=== PATIENT | female | born 1990 | race African-American/Black ===

== ENCOUNTER 2017-07-01 01:08 | Emergency (ER) | payer OTHER ==
[~2017-07-01] VITALS: Ht 165.1 cm; Wt 63.5 kg
--- NOTE | 2017-07-01 01:15 | NUR ---
PT AMBULATED TO ER WITH C/O BILATERAL LOWER ABDOMINAL PAIN, NAUSEA, & VOMITING THAT STARTED 5 HRS AGO. PT DENIES ANY MEDICAL HISTORY. PT APPEARS TO BE IN A LOT OF PAIN. PT GRIMACING, MOANING, AND DRY HEAVING. LAST BM WAS TODAY PER PT. AAOX4. ABLE TO SPEAKN IN COMPLETE SENTENCES. ABLE TO MAKE NEEDS KNOWN. RESPONSIVE TO VERBAL + TACTILE STIMULI. RESPIRATIONS EVEN + UNLABORED. NO SOB/CONGESTION NOTED. NO CHEST PAIN NOTED. PT IN BED IN LOWEST POSITION. WHEELS LOCKED. CALL LIGHT WITHIN REACH. VSS.
--- NOTE | 2017-07-01 01:17 | NUR ---
[facility] MIRELES AT BEDSIDE FOR MSE.
[2017-07-01] MEDS ORDERED: ONDANSETRON 4 MG/2 ML VIAL IV ONE ×3 (01:30→04:30)
[2017-07-01] MEDS ORDERED: PANTOPRAZOLE SODIUM 40 MG VIAL IV ONE (01:30)
[2017-07-01] MEDS ORDERED: IV NORMAL SALINE 1000 ML BAG IV ONE ×2 (01:30→02:45)
[2017-07-01] MEDS ORDERED: KETOROLAC TROMETHAMINE 15 MG INJ IV ONE (01:30)
--- NOTE | 2017-07-01 01:31 | NUR ---
[facility] AT BEDSIDE FOR BLOOD DRAW.
[2017-07-01] MEDS ORDERED: ONDANSETRON 4 MG/2 ML VIAL ONE ×4 (01:36→04:36)
[2017-07-01] MEDS ORDERED: KETOROLAC TROMETHAMINE 30 MG INJ ONE (01:36)
[2017-07-01] MEDS ORDERED: PANTOPRAZOLE SODIUM 40 MG VIAL ONE (01:36)
--- NOTE | 2017-07-01 02:00 | NUR ---
PT APPEARS IN DISCOMFORT/PAIN. DRY HEAVING LOUDLY. VSS.
[2017-07-01 02:07] LABS: BASOPHILS # (AUTO) 0.1 K/uL (0.0-8.0); BASOPHILS % (AUTO) 0.8 % (0.0-2.0); EOSINOPHILS % (AUTO) 0.2 % (0.0-7.0); HEMOGLOBIN 9.6 g/dL (10.9-14.3); LYMPHOCYTES # (AUTO) 2.6 K/uL (20.0-40.0); MEAN CORPUSCULAR HEMOGLOBIN 20.2 uug (24.7-32.8); MEAN CORPUSCULAR HGB CONC 31 g/dL (32.3-35.6); MEAN CORPUSCULAR VOLUME 64.9 fL (75.5-95.3); MONOCYTES # (AUTO) 0.4 K/uL (2.0-10.0); MONOCYTES % (AUTO) 4.6 % (0.0-11.0); NEUTROPHILS # (AUTO) 5.3 K/uL (1.8-8.9); NEUTROPHILS % (AUTO) 63.4 % (38.5-71.5); PLATELET COUNT (AUTO) 468 K/uL (179-408); RED BLOOD CELL COUNT(AUTO) 4.78 MIL/uL (3.63-4.92); WHITE BLOOD COUNT (AUTO) 8.4 K/uL (3.8-11.8)
[2017-07-01 02:10] LABS: POTASSIUM 3.5 mmol/L (3.5-5.1)
[2017-07-01 02:15] LABS: BILIRUBIN,DIRECT 0.1 mg/dL (0.0-0.2); BILIRUBIN,TOTAL 0.5 mg/dL (0.2-1.0); TOTAL PROTEIN, SERUM 8.8 g/dL (6.4-8.2)
[2017-07-01] MEDS ORDERED: MORPHINE SULFATE 2 MG/1 ML DISP.SYRIN IV ONE ×2 (02:15→04:30)
[2017-07-01] MEDS ORDERED: METOCLOPRAMIDE HCL 10 MG/2 ML VIAL IV ONE ×3 (02:15→03:30)
[2017-07-01] MEDS ORDERED: diphenhydrAMINE 50 MG/1 ML VIAL IV ONE (02:15)
[2017-07-01 02:16] LABS: *BILIRUBIN,URIN NEGATIVE (NEGATIVE); *BLOOD, URINE NEGATIVE (NEGATIVE); *CLARITY,URINE CLEAR (CLEAR); *COLOR,URINE YELLOW (YELLOW); *KETONES,URINE 1+ (NEGATIVE); *PROTEIN,URINE 2+ (NEGATIVE); *URINE HCG, QUAL NEGATIVE (NEGATIVE); *UROBILINOGEN,URINE 0.2 E.U./dl (NORMAL); LEUKOCYTE ESTERASE ,URINE NEGATIVE (NEGATIVE); NITRITE, URINE NEGATIVE (NEGATIVE); PH,URINE 8.5 (5.0-8.0); UGLUCOSE NEGATIVE (NEGATIVE)
[2017-07-01] MEDS ORDERED: METOCLOPRAMIDE HCL 10 MG/2 ML VIAL ONE ×3 (02:16→03:19)
[2017-07-01] MEDS ORDERED: MORPHINE SULFATE 4 MG/1 ML DISP.SYRIN ONE ×4 (02:16→04:36)
[2017-07-01] MEDS ORDERED: diphenhydrAMINE 50 MG/1 ML VIAL ONE (02:17)
[2017-07-01 02:20] LABS: RBC,URINE 0-3 /HPF (0-3)
[2017-07-01 02:21] LABS: BACTERIA,URINE NONE SEEN /HPF (NONE SEEN); MUCUS,URINE MANY /LPF (0-FEW); SQUAMOUS EPITHELIAL CELL,UR FEW /HPF (NONE SEEN)
[2017-07-01] MEDS ORDERED: MORPHINE SULFATE 4 MG/1 ML DISP.SYRIN IV ONE ×2 (02:45→03:30)
--- NOTE | 2017-07-01 02:48 | NUR ---
PT DRY HEAVING, MOANING IN PAIN. VSS. SA02 100% RA.
--- NOTE | 2017-07-01 03:00 | NUR ---
PT RESTING IN BED WITH EYES CLOSED. VSS.
--- NOTE | 2017-07-01 03:20 | NUR ---
PT APPEARS RESTLESS, MOANING IN PAIN, DRY HEAVING, VOMITED APPROXIMATELY 30 ML. VSS.
[2017-07-01 03:32] LABS: EOSINOPHILS % (MANUAL) 1 % (0-8); LYMPHOCYTES % (MANUAL) 18 % (20-40); MONOCYTES % (MANUAL) 8 % (2-10); NEUTROPHILS % (MANUAL) 73 % (42-75)
--- NOTE | 2017-07-01 03:41 | NUR ---
PT RESTING IN BED. VSS. PT STATES SHE FEELS "MUCH BETTER."
--- NOTE | 2017-07-01 04:48 | NUR ---
PT EN ROUTE TO CT SCAN ACCOMPANIED BY TRANSPORTER. VSS.
--- NOTE | 2017-07-01 04:59 | NUR ---
PT BACK FROM CT SCAN. VSS.
--- NOTE | 2017-07-01 05:06 | NUR ---
pt ambulates to restroom independently
--- NOTE | 2017-07-01 05:40 | NUR ---
PT RESTING IN BED WITH EYES CLOSED. VSS. NO DISTRESS NOTED.
--- NOTE | 2017-07-01 06:30 | NUR ---
PT RESTING COMFORTABLY IN BED WITH EYES CLOSED. VSS. NO DISTRESS NOTED. NO N/V NOTED AT THIS TIME.
--- NOTE | 2017-07-01 07:15 | NUR ---
Patient discharged to home in stable conditon. Written and verbal after care instructions given. Patient verbalizes understanding of instructions. Patient left ER and walks in steady gait. VSS. No distress noted. IV removed. All belongings with pt.
[2017-07-01 07:18] VITALS: BP 121/72
== END 2017-07-01 07:18 | disposition home or self-care (01) ==
LOC: EDSEX 01:10 → ER 01:10
DX: R10.30 Lower abdominal pain, unspecified (principal); R11.10 Vomiting, unspecified
CPT/HCPCS: 36415; 74176; 80048; 80076; 81001; 83690; 84703; 85025; 96361; 96374; 96375; 96376; 99285; A4663; C9113; J1200; J1885; J2270 ×4; J2405 ×3; J2765 ×3; J7030 ×2